=== PATIENT | female | born 1955 | race Caucasian/White ===

== ENCOUNTER 2022-02-22 12:23 | Emergency (ER) | payer MEDICARE, OTHER ==
[~2022-02-22] VITALS: Ht 157.5 cm; Wt 85.7 kg
[2022-02-22 12:34] VITALS: BP 154/83
[2022-02-22] MEDS ORDERED: LIDOCAINE 1% INJ 50 ML (XYLOCAINE) VIAL IJ ONE (12:45)
[2022-02-22] MEDS ORDERED: BUPIVACAINE 0.5% 30 ML (SENSORCAINE) VIAL INJ ONE (12:45)
--- NOTE | 2022-02-22 12:45 | ED EENT ---
History of Present Illness General Chief Complaint: Facial Problems Stated Complaint: FACIAL SWELLING - DENTAL PAIN Nursing Triage Note: PT AMB TO FT 2 W REPORTS OF BREAKING A LEFT LOWER TOOTH APPROX 2 WEEKS AGO, PAIN AND SWELLING AT SITE BEGAN LAST NIGHT. PT WENT TO DR. PRATT (DENTIST) IN [facility] TODAY WHO ADVISED PT TO GO TO ED FOR FURTHER EVALUATION AND TX. PT A&OX4. Source: patient Exam Limitations: no limitations History of Present Illness Date Seen by Provider: Feb 22, 2022 Time Seen by Provider: 12:40 Initial Comments Patient is a 66-year-old female who presents to the emergency department today with a chief complaint of left lower jaw swelling and discomfort onset last night at around 11 PM. Patient states that she went to a dentist in [place] who told her that she needed to come to the emergency department for IV antibiotics. Patient denies any fevers or chills. No nausea or vomiting. She is not diabetic. She states she broke a tooth a couple of weeks ago. She is not taken anything for the pain. All other review of systems reviewed and negative except as stated. Timing/Duration: abrupt Severity: moderate Location: dental (left lower jaw) Allergies and Home Medications Allergies Coded Allergies: No Known Drug Allergies (Unverified , 02/22/22) Patient Home Medication List Home Medication List Reviewed: Yes Hydrocodone/Acetaminophen (Hydrocodone-Acetamin 5-325 mg) 1 Each Tablet, 1 TAB PO Q6H PRN for PAIN-MODERATE (5-7) Prescribed by: CHERELLE REES on 02/22/22 1327 Ondansetron (Ondansetron Odt) 4 Mg Tab.rapdis, 4 MG PO Q8H PRN for nausea Prescribed by: CHERELLE REES on 02/22/22 1326 Penicillin V Potassium (Penicillin V Potassium) 500 Mg Tablet, 500 MG PO Q6H Prescribed by: CHERELLE REES on 02/22/22 1326 Review of Systems Review of Systems Constitutional: see HPI Eyes: No Symptoms Reported Ears: No Symptoms Reported Nose: no symptoms reported Mouth: swelling, other (dental pain) Throat: no symptoms reported Respiratory: no symptoms reported Cardiovascular: no symptoms reported Gastrointestinal: nausea Skin: no symptoms reported All Other Systems Reviewed Negative Unless Noted: Yes Past Jpuvzzj-Hrrirq-Unjkhc Hx Patient Social History Tobacco Use?: No Use of E-Cig and/or Vaping dev: No Substance use?: No Alcohol Use?: No Immunizations Up To Date Influenza Vaccine Up-to-Date: No; Not Current First/Initial COVID19 Vaccinat: 2020 Second COVID19 Vaccination Angel: 2020 Third COVID19 Vaccination Date: NONE 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 oz. kg; 34.00 BMI Method: General Appearance: WD/WN, mild distress (secondary to dental pain) Eyes: bilateral eye normal inspection, bilateral eye PERRL, bilateral eye EOMI Nose: normal inspection Mouth/Throat: pharynx normal, dental tenderness; No excessive drooling; other (Significant swelling left lateral jaw just posterior to the chin along the mandible. Soft, not significantly indurated. No overlying erythema. No defects noted in the skin. Patient has significant swelling along the buccal/gingival mucosa adjacent to a left premolar that appears fractured. She has a capped tooth/posterior molar at the very back of the left side of the jaw. It is nontender. No obvious signs of intraoral drainage from the area of swelling. The swelling extends along the front of the lower teeth to the right side. Minimal swelling in the floor of the mouth. Tongue is not displaced. No change in voice/hoarseness swallowing normally.) Neck: non-tender, full range of motion, supple Cardiovascular: regular rate, rhythm Respiratory: lungs clear, normal breath sounds, no respiratory distress Procedures/Interventions I&D : Progress 1% plain lidocaine mixed with 0.5% bupivicaine, 2.5 cc used to infiltrate along the buccal/gingival mucosa on the left. 3 separate "stab" incisions to what felt like significant fluctuance. bleeding returned, no purulence. area massaged, no purulence expressed. Patient rinsed with ice water copiously. Progress/Results/Core Measures Results/Orders My Orders Orders - CHERELLE REES MD Lidocaine 1% Inj 50 Ml (Xylocaine 1% Inj (02/22/22 12:45) Bupivacaine 0.5% Injection (Sensorcaine (02/22/22 12:45) Ondansetron Oral Dissolve Tab (Zofran (02/22/22 13:14) Acetaminophen Tablet (Tylenol Tablet) (02/22/22 13:15) Penicillin Vk Tablet (Veetid Tablet) (02/22/22 13:15) Vital Signs/I&O Blood Pressure Mean: 106 Departure Impression Primary Impression: Abscess, intraoral Disposition: 01 HOME, SELF-CARE Condition: Stable Departure-Patient Inst. Decision time for Depature: 13:21 Referrals: [facility] [place],LOCAL PHYSICIAN (PCP) Primary Care Physician Patient Instructions: Tooth Abscess ED Add. Discharge Instructions: Take the antibiotics 4 times a day as prescribed until they are gone. I have given you also a prescription for yeast infection. One at the onset of any symptoms, then repeat the dose one pill (Diflucan) 7 days later. Pain medications and nausea medications as prescribed. Do not drive and take pain medications. Recheck with the dentist or [facility] in [place] in the next 24 hours, or sooner if your symptoms are worsening, such as fever, increasing redness, swelling or difficulty swallowing. Use a good oral rinse - Listerine, twice a day. Scripts Fluconazole (Diflucan) 200 Mg Tablet 200 MG PO ONCE, #2 TAB repeat dose after 7 days Prov: CHERELLE RESE MD 02/23/22 Hydrocodone/Acetaminophen (Hydrocodone-Acetamin 5-325 mg) 1 Each Tablet 1 TAB PO Q6H PRN for PAIN-MODERATE (5-7), #15 TAB Prov: CHERELLE REES MD 02/22/22 Ondansetron (Ondansetron Odt) 4 Mg Tab.rapdis 4 MG PO Q8H PRN for nausea, #20 TAB Prov: CHERELLE REES MD 02/22/22 Penicillin V Potassium (Penicillin V Potassium) 500 Mg Tablet 500 MG PO Q6H, #40 TAB Prov: CHERELLE REES MD 02/22/22 Images Head/Face 1 - Swelling Mouth/Nose 1 - Fracture Tooth 2 - Swelling, Tenderness CHERELLE REES MD Feb 22, 2022 12:45
[2022-02-22] MEDS ORDERED: ONDANSETRON 4 MG (ZOFRAN) ORAL DISSOLVE TAB PO STA (13:14)
[2022-02-22] MEDS ORDERED: PENICILLIN V K 250 MG TAB PO ONE (13:15)
[2022-02-22] MEDS ORDERED: ACETAMINOPHEN 500 MG TAB (TYLENOL) PO ONE (13:15)
[2022-02-22] MEDS ORDERED: PENI500T PO (13:26)
[2022-02-22] MEDS ORDERED: ONDA4TAB11 PO (13:26)
[2022-02-22] MEDS ORDERED: ACHD5005 PO (13:26)
[2022-02-23] MEDS ORDERED: FLUC200T PO (05:54)
[2022-02-23] MEDS ORDERED: AMOX1TAB12 PO (06:03)
[2022-02-23] MEDS ORDERED: IBUP-1773 PO (06:03)
[2022-02-23] MEDS ORDERED: FLUC150T41 PO (06:03)
== END 2022-02-22 14:16 | disposition home or self-care (01) ==
LOC: ER 12:25
DX: K12.2 Cellulitis and abscess of mouth (principal); K03.81 Cracked tooth
CPT/HCPCS: 99283

== ENCOUNTER 2022-02-23 05:37 | Emergency (ER) | payer OTHER ==
[~2022-02-23] VITALS: Ht 157.4 cm; Wt 85.2 kg
[~2022-02-23 05:37] MED LIST: ACHD5005 PO; ONDA4TAB11 PO; PENI500T PO
[2022-02-23] MEDS ORDERED: AMPICILLIN/SULBACTAM INJECTION 3 GM in NS (IVPB) 100 ML IV STA (05:48)
[2022-02-23] MEDS ORDERED: FLUC200T PO (05:54)
--- NOTE | 2022-02-23 05:59 | ED EENT ---
History of Present Illness General Chief Complaint: Dental Problems/Pain Stated Complaint: SWELLING IN FACE Source: patient Exam Limitations: no limitations History of Present Illness Date Seen by Provider: Feb 23, 2022 Time Seen by Provider: 05:40 Initial Comments 66-year-old female with no significant past medical history coming in due to a dental abscess. She says she started having dental pain around 11 PM 2 nights ago. She presented to the dentist yesterday and was referred to the ER. An I&D was attempted with mostly bloody discharge per report. Started on penicillin which she has had a dose of. Overnight the swelling became a lot worse and so she presented here. Denies any fever, throat pain, voice changes, or any other concerns. She is otherwise denying any other acute complaints. Allergies and Home Medications Allergies Coded Allergies: No Known Drug Allergies (Unverified , 02/22/22) Patient Home Medication List Home Medication List Reviewed: Yes Amoxicillin/Potassium Clav (Amox Tr-K Clv 875-125 mg Tab) 1 Each Tablet, 1 EACH PO BID Prescribed by: KELLY GUPTA on 02/23/22 0603 Fluconazole (Diflucan) 200 Mg Tablet, 200 MG PO ONCE Prescribed by: CHERELLE REES on 02/23/22 0554 Fluconazole (Fluconazole) 150 Mg Tablet, 150 MG PO ONCE Prescribed by: KELLY GUPTA on 02/23/22 0603 Hydrocodone/Acetaminophen (Hydrocodone-Acetamin 5-325 mg) 1 Each Tablet, 1 TAB PO Q6H PRN for PAIN-MODERATE (5-7) Prescribed by: CHERELLE REES on 02/22/22 1327 Ibuprofen (Ibuprofen) 600 Mg Tablet, 600 MG PO Q6H PRN for PAIN-MILD Prescribed by: KELLY GUPTA on 02/23/22 0603 Ondansetron (Ondansetron Odt) 4 Mg Tab.rapdis, 4 MG PO Q8H PRN for nausea Prescribed by: CHERELLE REES on 02/22/22 1326 Penicillin V Potassium (Penicillin V Potassium) 500 Mg Tablet, 500 MG PO Q6H Prescribed by: CHERELLE REES on 02/22/22 1326 Review of Systems Review of Systems Constitutional: No chills, No fever Eyes: Denies Blurred Vision Ears: Denies Dizziness Nose: no symptoms reported Mouth: pain, swelling Throat: no symptoms reported Respiratory: no symptoms reported Cardiovascular: no symptoms reported Gastrointestinal: no symptoms reported Musculoskeletal: no symptoms reported Skin: no symptoms reported Neurological: No Symptoms Reported Hematologic/Lymphatic: No Symptoms Reported Immunological/Allergic: no symptoms reported All Other Systems Reviewed Negative Unless Noted: Yes Past Heitqps-Ivrnyq-Cvwtvx Hx Patient Social History Tobacco Use?: No Substance use?: No Alcohol Use?: No Pt feels they are or have been: No Immunizations Up To Date First/Initial COVID19 Vaccinat: 2020 Second COVID19 Vaccination Angel: 2020 Third COVID19 Vaccination Date: NONE Past Medical History Surgeries: No Physical Exam Vital Signs Vital Signs - First Documented 02/23/22 05:39 Temp 36.3 Pulse 76 Resp 16 B/P (MAP) 124/66 (85) Pulse Ox 96 O2 Delivery Room Air Height, Weight, BMI Height: '" Weight: lbs. oz. kg; 34.00 BMI Method: General Appearance: WD/WN, no apparent distress Eyes: bilateral eye normal inspection Ears: bilateral ear auricle normal Nose: normal inspection Mouth/Throat: dental tenderness, mandibular swelling; No tongue swollen, No tonsillar exudate, No tonsillar swelling, No trismus, No uvula swelling, No voice changes Neck: non-tender, full range of motion, supple, normal inspection Cardiovascular: regular rate, rhythm, no edema, no murmur Respiratory: chest non-tender, lungs clear, normal breath sounds, no respiratory distress, no accessory muscle use Gastrointestinal: normal bowel sounds, non tender, soft; No distended, No guarding, No rebound Neurologic/Psychiatric: no motor/sensory deficits, alert, normal mood/affect Skin: normal color, warm/dry Procedures/Interventions I&D : Site: Left lower jaw around tooth number 19 (multiple missing teeth) Blade Size: 11 Progress inferior alveolar and buccal nerve block performed, single stab incision around tooth number 19 on buccal surface with a moderate amount of purulent discharge followed by blood, hemostatic afterwards Progress/Results/Core Measures Results/Orders My Orders Orders - KELLY GUPTA MD Ampicillin/Sulbactam Injection (Unasyn 3 (02/23/22 05:48) Ketorolac Injection (Toradol Injection) (02/23/22 06:00) Ed Iv/Invasive Line Start (02/23/22 06:05) Medications Given in ED Current Medications Medications Dose Ordered Sig/Estrellita Route Start Time Stop Time Status Last Admin Dose Admin Ketorolac Tromethamine 15 mg ONCE ONCE IVP 02/23/22 06:00 02/23/22 06:01 DC 02/23/22 05:59 15 MG Vital Signs/I&O 02/23/22 05:39 Temp 36.3 Pulse 76 Resp 16 B/P (MAP) 124/66 (85) Pulse Ox 96 O2 Delivery Room Air Progress Progress Note : Progress Note 66-year-old female with above history coming in due to a dental abscess. ABCs were intact and vitals were stable on presentation. She does have some left lower jaw swelling and I do feel some fluctuance. Nerve block was performed in the abscess was incised and drained with a moderate amount of purulent discharge. She was given a dose of Unasyn given the significance of the swelling compared to yesterday. We will switch her to Augmentin, although it likely has been too soon for it to really be a failure of the penicillin. I will refer her back to her dentist to have the tooth removed. She was then discharged home in stable condition with strict return precautions Departure Impression Primary Impression: Dental abscess Disposition: HOME, SELF-CARE Condition: Stable Departure-Patient Inst. Decision time for Depature: 06:33 Referrals: NO,LOCAL PHYSICIAN (PCP/Family) Primary Care Physician Patient Instructions: Tooth Abscess (DC) Scripts Fluconazole (Fluconazole) 150 Mg Tablet 150 MG PO ONCE for 1 Day, #1 TAB Prov: KELLY GUPTA MD 02/23/22 Ibuprofen (Ibuprofen) 600 Mg Tablet 600 MG PO Q6H PRN for PAIN-MILD for 5 Days, #20 TAB Prov: KELLY GUPTA MD 02/23/22 Amoxicillin/Potassium Clav (Amox Tr-K Clv 875-125 mg Tab) 1 Each Tablet 1 EACH PO BID for 7 Days, #14 TAB Prov: KELLY GUPTA MD 02/23/22 Work/School Note: Work Release Form Date Seen in the Emergency Department: Feb 23, 2022 Return to Work: Feb 25, 2022 Restrictions: No Restrictions KELLY GUPTA MD Feb 23, 2022 05:59
[2022-02-23] MEDS ORDERED: KETOROLAC 30 MG/ML VIAL IVP ONE (06:00)
[2022-02-23] MEDS ORDERED: AMOX1TAB12 PO (06:03)
[2022-02-23] MEDS ORDERED: IBUP-1773 PO (06:03)
[2022-02-23] MEDS ORDERED: FLUC150T41 PO (06:03)
[2022-02-23 06:56] VITALS: BP 124/66
== END 2022-02-23 06:56 | disposition home or self-care (01) ==
LOC: EDUNIT# 05:37 → ER FS 05:39
DX: K04.7 Periapical abscess without sinus (principal)